=== PATIENT | female | born 1965 | race Two or more races ===

== ENCOUNTER 2018-12-01 08:35 | Day surgery (SDC) | payer BC ==
[2018-11-22 10:49] VITALS: BP 178/97
--- NOTE | 2018-11-22 11:06 | PCM.EKG ---
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 Reading MD: Measurements Intervals [place] Rate: 63 P: 57 WA: 164 QRS: 58 QRSD: 102 T: 18 QT: 462 QTc: 472 Interpretive Statements Normal sinus rhythm Nonspecific ST abnormality Abnormal ECG No previous ECG available for comparison Please click the below link to view image of tracing.
[2018-11-22 11:31] LABS: BASOPHIL % 0.3 % (0.0-0.2); EOSINOPHIL # 0.3 10^3/uL (0.0-0.2); LYMPHOCYTES # 1.9 10^3/uL (1.0-4.8); LYMPHOCYTES % 30.9 % (24.0-44.0); MEAN CELL HGB 30.8 pg (26-34); MEAN CELL HGB CONCENTRATION 33.9 g/dL (33-37); MEAN CORP VOLUME 90.8 fL (78-100); MEAN PLATELET VOLUME 9.6 fL (7.8-11.0); MONOCYTES # 0.6 10^3/uL (0.3-0.8); MONOCYTES % 9.4 % (5.0-12.0); NEUTROPHIL # 3.5 10^3/uL (1.8-7.7); NEUTROPHILS % 55.2 % (41.0-85.0); RED CELL DISTRIBUTION WIDTH 14.4 % (11.5-14.5); WHITE BLOOD CELL 6.3 10^3/uL (4.5-11.0)
[2018-11-22 11:50] LABS: CARBON DIOXIDE 26.7 mmol/L (20.0-32)
[~2018-12-01] VITALS: Ht 165.1 cm; Wt 83.9 kg
[~2018-12-01 08:35] MED LIST: AMLO-365 PO; ASPI-484 PO; ESTR1TAB5 PO; LACTATED RINGERS 1,000 ML IV SCH; LACTATED RINGERS 1,000 ML ONE; LEVO25TA4 PO; MAGN250T9 PO; MOVIPREP POWDER PACKET PO STA; OMEG-69 PO; WATER ONE
[2018-12-01 08:41] VITALS: BP 161/96
[2018-12-01] MEDS ORDERED: LIDOCAINE 2% VIAL ONE ×2 (09:22→09:36)
[2018-12-01] MEDS ORDERED: SUBLIMAZE ONE (09:23)
[2018-12-01] MEDS ORDERED: DIPRIVAN IV ONE ×2 (09:23→10:46)
[2018-12-01 11:13] VITALS: BP 139/59
[2018-12-01 11:25] VITALS: BP 111/66
[2018-12-01 11:40] VITALS: BP 124/90
[2018-12-01 11:55] VITALS: BP 133/89
--- NOTE | 2018-12-01 12:00 | OPH ---
DATE OF SURGERY: PREOPERATIVE DIAGNOSES: History of dyspepsia, abdominal pain and need for screening. POSTOPERATIVE DIAGNOSES: 1. Peptic ulcer disease associated gastritis. 2. Healthy appearing colon. SURGEON: Aníbal Rao DO [place] [employer] SUPERVISOR: OR staff. ANESTHESIA: Total intravenous anesthesia by Ke Hensley CRNA. PROCEDURES PERFORMED: 1. Esophagogastroduodenoscopy with biopsy. 2. Long flexible colonoscopy to the cecum. SPECIMENS: Gastric mucosa to path. ESTIMATED BLOOD LOSS: 3 mL. COUNTS: At the completion of the case, the counts were correct per OR staff. DESCRIPTION OF PROCEDURE: The patient is a 53-year-old female known from previous evaluation. Prior to procedure, informed consent was obtained. At time of procedure, she was taken to the operative suite and placed in supine position. After time-out was completed, she was placed in left lateral recumbent position. With excellent sedation, esophagogastroduodenoscope was advanced transorally with pneumoinsufflation distally in second portion of duodenum. Once the duodenum was adequately visualized, camera was slowly withdrawn to facilitate visualization of the duodenal bulb and the pylorus. Pylorus and distal stomach show gastritis as well as areas of healing ulceration. Biopsies were obtained. With good hemostasis noted, the retroflexed maneuver was performed. Cardia was within normal limits as well as the fundus. Camera was reduced. Stomach was decompressed. Scope was slowly withdrawn. Distal, mid and proximal esophagus were within normal limits. The vocal cords were visualized well. They were within normal limits. The camera was removed and the procedure was discontinued. The patient remained in the OR. Timeout was previously completed. With adequate sedation, rectal exam was performed. There were no masses. Next, the colonoscope was advanced transanally with pneumoinsufflation proximally to level of cecum. The quality of prep was good. Once cecum was visualized, camera was slowly withdrawn to facilitate visualization of the ascending colon, hepatic flexure, transverse colon, splenic flexure, descending colon, sigmoid and rectum. There were no overt masses, polyps or AVMs. There was no identified pathology. At the level of 5 cm in rectum, camera was retroflexed and reinserted. Anal verge was visualized with small internal hemorrhoids. Camera was reduced. Colon was decompressed. Colonoscope was removed. The patient tolerated this procedure well. There were no acute complications noted. Aníbal Rao DO DR: Otis JOB# [id number] CC: IHSAN HART
[2018-12-01 12:10] VITALS: BP 140/84
== END 2018-12-01 12:35 | disposition home or self-care (01) | DRG 951 ==
LOC: SDC 08:35
PROVIDERS: ATTEND Surgery
DX: Z12.11 Encounter for screening for malignant neoplasm of colon (principal); K29.30 Chronic superficial gastritis without bleeding; K30 Functional dyspepsia; K64.8 Other hemorrhoids; K27.9 Peptic ulcer, site unspecified, unspecified as acute or chronic, without hemorrhage or perforation; I10 Essential (primary) hypertension; E78.5 Hyperlipidemia, unspecified; E03.9 Hypothyroidism, unspecified; F17.210 Nicotine dependence, cigarettes, uncomplicated; F41.9 Anxiety disorder, unspecified; Z79.899 Other long term (current) drug therapy; Z79.82 Long term (current) use of aspirin; Z82.49 Family history of ischemic heart disease and other diseases of the circulatory system
CPT/HCPCS: 36415; 43239; 45378; 80053; 85025; 85610; 85730; 88305; 93005; J2001 ×2; J3010; J3490 ×2; J7120

== ENCOUNTER → 2018-12-19 | Outpatient (CLI) | payer BC ==
[~2018-12-19] MED LIST changes: -LACTATED RINGERS 1,000 ML IV SCH; -LACTATED RINGERS 1,000 ML ONE; -MOVIPREP POWDER PACKET PO STA; -WATER ONE
--- NOTE | 2018-12-20 08:49 | DIREP ---
PROCEDURE:Digital Screening Mammogram TECHNIQUE:MLO, CC, XCCL, and cleavage digital images of each breast are provided. Computer Assisted Detection (CAD) was utilized. COMPARISON:None. INDICATIONS:SCREENING BREAST COMPOSITION:There are scattered areas of fibroglandular density. FINDINGS:There are no grouped microcalcifications, masses, or architectural distortions to suggest malignancy. IMPRESSION:No mammographic evidence of malignancy. RECOMMENDATIONS:Routine Screening Mammography per [employer] guidelines. OVERALL FINAL ASSESSMENT:BI-RADS 1 - Negative Mammogram Note: This facility participates in a mammography screening patient reminder system. Dictated by: Sunny Saldaña M.D. on 12/20/2018 at 08:46 AM
== END | disposition home or self-care (01) ==
LOC: EDUNIT# 11-28 15:00 → RAD 13:45
PROVIDERS: ATTEND Nurse Practitioner Family
DX: Z12.39 Encounter for other screening for malignant neoplasm of breast (principal); N64.89 Other specified disorders of breast
CPT/HCPCS: 77067